=== PATIENT | male | born 1990 | race Asian ===

== ENCOUNTER 2017-09-25 09:15 | Inpatient (IN) | payer SELFPAY ==
[~2017-09-25] VITALS: Ht 167.6 cm; Wt 92.5 kg
[2017-09-25 09:17] VITALS: Ht 167.6 cm; Wt 92.5 kg
[2017-09-25 09:53] LABS: CALCIUM 10.1 mg/dL (8.5-10.1); CHLORIDE SERUM 93 mmol/L (98-107); CREATININE SERUM 1.1 mg/dL (0.7-1.3); GFR1 > 60 mL/min; GLUCOSE SERUM 115 mg/dL (74-106); POTASSIUM SERUM 3.6 mmol/L (3.5-5.1); SODIUM SERUM 132 mmol/L (136-145)
[2017-09-25 09:57] LABS: ALBUMIN 4.9 g/dL (3.4-5.0); ALKALINE PHOSPHATASE 92 U/L (46-116); ALT/SGPT 42 U/L (16-63); AST/SGOT 32 U/L (15-37); BILIRUBIN TOTAL 0.7 mg/dL (0.20-1.00); CHOLESTEROL 179 mg/dL (<200)
[2017-09-25 10:00] LABS: TOTAL PROTEIN, SERUM 9.3 g/dL (6.4-8.2)
[2017-09-25 10:13] LABS: PLATELET COUNT 398 x10^3mcL (130-400); RED CELL DISTRIBUTION WIDTH 13.2 % (11.5-14.5)
[2017-09-25 10:42] LABS: BASOPHIL % 0 % (0-2)
[2017-09-25 11:15] LABS: AMPHETAMINE QUAL UR POSITIVE (NEG <=1000)
[2017-09-25 12:18] LABS: MAGNESIUM 1.8 mg/dL (1.8-2.4); PHOSPHOROUS 1.7 mg/dL (2.5-4.9)
[2017-09-25 12:19] LABS: CHOLESTEROL/HDL RATIO 2.6
[2017-09-25 13:34] VITALS: BP 159/87
[2017-09-25 15:20] LABS: FREE T4 1.18 ng/dL (0.76-1.46); FREE THYROXINE INDEX 3.1 ug/dL (1.4-4.5); T4(THYROXINE) 9.5 ug/dL (4.7-13.3)
[2017-09-25 15:58] VITALS: BP 158/93
[2017-09-25 16:11] LABS: APPEARANCE CSF CLEAR; COLOR CSF COLORLESS
[2017-09-25 16:12] LABS: APPEARANCE CSF CLEAR; COLOR CSF COLORLESS; RBC CSF 0 /cumm (0); WBC CSF 0 /cumm (0-5)
[2017-09-25 16:21] LABS: TOTAL PROTEIN CSF 32 mg/dL (15-45)
[2017-09-26 09:16] LABS: T3 TOTAL 1.03 ng/mL
== END 2017-09-25 20:00 | disposition left against medical advice (07) | DRG 91 ==
LOC: ED 09:15 → IC 11:11
PROVIDERS: Family Medicine Sports Medicine; Specialist
PROC: 009U3ZX Drainage of Spinal Canal, Percutaneous Approach, Diagnostic (ICD-10-PCS; principal; 2017-09-25)
DX: G92 Toxic encephalopathy (principal); I21.4 Non-ST elevation (NSTEMI) myocardial infarction; N17.9 Acute kidney failure, unspecified; E87.1 Hypo-osmolality and hyponatremia; Y92.89 Other specified places as the place of occurrence of the external cause; R50.9 Fever, unspecified; G90.9 Disorder of the autonomic nervous system, unspecified; I16.0 Hypertensive urgency; Z53.21 Procedure and treatment not carried out due to patient leaving prior to being seen by health care provider; F15.129 Other stimulant abuse with intoxication, unspecified; F12.929 Cannabis use, unspecified with intoxication, unspecified; F14.129 Cocaine abuse with intoxication, unspecified
CPT/HCPCS: 36600; 83880; 84439; 87804; G0480; J0133; J0696; J2001; J2060; J7030; Q0092